=== PATIENT | male | born 1995 | race Hispanic/Latino ===

== ENCOUNTER 2017-02-21 02:05 | Emergency (ER) | payer SELFPAY ==
[2017-02-21] MEDS ORDERED: Fentanyl 100 MCG/2 ML VIAL ONE (02:24)
--- NOTE | 2017-02-21 07:54 | RAD ---
TWO VIEWS RIGHT SHOULDER: INDICATION: Post reduction. FINDINGS: There has been interval restored alignment of the right shoulder. No obvious fracture on the 2 prov ided views. IMPRESSION: Restored alignment of the right shoulder. POS: [facility]
--- NOTE | 2017-02-21 08:13 | RAD ---
RIGHT SHOULDER TWO VIEWS: INDICATIONS: Pain. FINDINGS: There is an abnormal anterior and inferior location of the right humeral head, relative to the scapu la and glenoid, compatible with dislocation. No obvious fracture. IMPRESSION: Anterior right shoulder dislocation. POS: [facility]
== END 2017-02-21 03:15 | disposition home or self-care (01) ==
LOC: ERS 02:05
DX: M24.411 Recurrent dislocation, right shoulder (principal); F17.210 Nicotine dependence, cigarettes, uncomplicated; X58.XXXA Exposure to other specified factors, initial encounter; Y93.84 Activity, sleeping
CPT/HCPCS: 23650; 96374; J3010